=== PATIENT | female | born 2000 | race Caucasian/White ===

== ENCOUNTER 2021-03-23 09:42 | Day surgery (SDC) | payer OTHER ==
[2021-03-23] MEDS ORDERED: EPINEPHrine/PF 1 MG/1 ML (1:1,000) AMPULE ONE (11:38)
[2021-03-23] MEDS ORDERED: BUPIVACAINE HCL/PF 2.5 MG/ML - 30 ML VIAL IJ ONE (11:38)
[2021-03-23] MEDS ORDERED: SUCCINYLCHOLINE CHLORIDE 200 MG/10 ML SYRINGE ONE (12:04)
[2021-03-23] MEDS ORDERED: PROPOFOL 20 ML ONE ×2 (12:04)
[2021-03-23] MEDS ORDERED: MIDAZOLAM HCL 2 MG/2 ML SINGLE DOSE VIAL ONE (12:04)
[2021-03-23] MEDS ORDERED: DEXAMETHASONE SOD PHOSPHATE 4 MG/1 ML VIAL ONE (12:16)
[2021-03-23] MEDS ORDERED: ONDANSETRON 4 MG/2 ML VIAL ONE (12:16)
[2021-03-23] MEDS ORDERED: KETOROLAC TROMETHAMINE 30 MG/1 ML VIAL ONE (12:16)
[2021-03-23] MEDS ORDERED: PROMETHAZINE HCL 25 MG/1 ML VIAL IVPUSH PRN (13:06)
[2021-03-23] MEDS ORDERED: ONDANSETRON 4 MG/2 ML VIAL IVPUSH PRN (13:06)
[2021-03-23] MEDS ORDERED: oxyCODONE HCL 5 MG TABLET PO PRN ×2 (13:06)
[2021-03-23] MEDS ORDERED: oxyCODONE HCL 5 MG TABLET ONE (13:50)
[2021-03-23 14:15] VITALS: TEMP 97.6
[2021-03-23 14:23] VITALS: PULSE 84
[2021-03-23 14:54] VITALS: BP 110/70
== END 2021-03-23 14:55 | disposition home or self-care (01) ==
LOC: FASU 09:42
PROVIDERS: ATTEND Orthopaedic Surgery
PROC: 0SBD4ZZ Excision of Left Knee Joint, Percutaneous Endoscopic Approach (ICD-10-PCS; principal; 2021-03-23 12:31)
DX: M65.861 Other synovitis and tenosynovitis, right lower leg (principal); M67.52 Plica syndrome, left knee
CPT/HCPCS: 84703; 88304-TC; 94760

== ENCOUNTER 2022-06-21 08:43 | Day surgery (SDC) | payer OTHER ==
[2022-06-15 14:02] VITALS: BMI 32.3
[2022-06-21] MEDS ORDERED: LIDOCAINE HCL/PF 2% SDV 5ML VIAL ONE (09:38)
[2022-06-21] MEDS ORDERED: DEXAMETHASONE SOD PHOSPHATE 4 MG/1 ML VIAL ONE (09:39)
[2022-06-21] MEDS ORDERED: KETOROLAC TROMETHAMINE 30 MG/1 ML VIAL ONE (09:39)
[2022-06-21] MEDS ORDERED: MIDAZOLAM HCL 2 MG/2 ML SINGLE DOSE VIAL ONE (09:39)
[2022-06-21] MEDS ORDERED: ONDANSETRON 4 MG/2 ML VIAL ONE (09:39)
[2022-06-21] MEDS ORDERED: PROPOFOL 20 ML ONE (09:39)
[2022-06-21] MEDS ORDERED: LIDOCAINE HCL 2% (20ML MULTI-DOSE VIAL) ONE (09:59)
[2022-06-21] MEDS ORDERED: oxyCODONE HCL 5 MG TABLET PO PRN ×2 (10:58)
[2022-06-21] MEDS ORDERED: PROMETHAZINE HCL 25 MG/1 ML VIAL IVPB PRN (10:58)
[2022-06-21] MEDS ORDERED: ONDANSETRON 4 MG/2 ML VIAL IVPUSH PRN (10:58)
[2022-06-21] MEDS ORDERED: ACETAMINOPHEN 1000 MG/100 ML BAG IVPB ONE (10:59)
[2022-06-21] MEDS ORDERED: LACTATED RINGERS SOLUTION 1,000 ML IV SCH (11:00)
[2022-06-21] MEDS ORDERED: FENTANYL CITRATE/PF 50 MCG/ML VIAL ONE ×2 (11:05→11:26)
[2022-06-21] MEDS ORDERED: oxyCODONE HCL 5 MG TABLET ONE (12:03)
[2022-06-21 13:55] VITALS: TEMP 97.7
[2022-06-21 14:08] VITALS: BP 116/69; PULSE 88; RESP 15
== END 2022-06-21 13:00 | disposition home or self-care (01) ==
LOC: FASU 08:43
PROVIDERS: ATTEND Orthopaedic Surgery Hand Surgery
PROC: 0LQ80ZZ Repair Left Hand Tendon, Open Approach (ICD-10-PCS; principal; 2022-06-21 10:24)
DX: M65.832 Other synovitis and tenosynovitis, left forearm (principal)
CPT/HCPCS: 84703; 94760